=== PATIENT | female | born 1990 | race Caucasian/White ===

== ENCOUNTER 2024-02-26 15:22 | Outpatient (CLI) | payer OTHER, SELFPAY | END 2024-02-26 15:23 | disposition home or self-care (01) | LOC: FRMREF 15:25 | PROVIDERS: PCP Physician Assistant Medical; Visit Provider Physician Assistant Medical | DX: E06.3 Autoimmune thyroiditis (principal) | CPT/HCPCS: 84443 ==

== ENCOUNTER 2024-04-14 09:58 | Outpatient (CLI) | payer OTHER, SELFPAY | END 2024-04-14 09:59 | disposition home or self-care (01) | LOC: FRMREF 09:58 | PROVIDERS: PCP Physician Assistant Medical; Visit Provider Physician Assistant Medical | DX: R51.9 Headache, unspecified (principal); R53.83 Other fatigue | CPT/HCPCS: 80053; 82306; 82607; 82728 ==

== ENCOUNTER 2024-04-21 08:44 | Outpatient (RCR) | payer OTHER, SELFPAY ==
--- NOTE | 2024-04-18 14:39 | PC.NURSE ---
Diagnosis: Low Ferritin
[2024-04-21 08:56] VITALS: BP 97/64; PULSE 76; RESP 18; TEMP 36.3; O2SAT 97
[2024-04-21] MEDS: IRON DEXTRAN COMPLEX 25 MG in 0.9 % SODIUM CHLORIDE 100 ml 100 ML 402 MG IVPB (09:44)
[2024-04-21 10:07] VITALS: BP 90/58; PULSE 56; RESP 16; O2SAT 97
[2024-04-21 10:40] VITALS: BP 89/55; PULSE 63; RESP 14; TEMP 36.1; O2SAT 98
[2024-04-21] MEDS: IRON DEXTRAN COMPLEX 975 MG in 0.9 % SODIUM CHLORIDE 250 ml 250 ML 269.5 MG IVPB (11:00)
[2024-04-21 12:00] VITALS: BP 112/73; PULSE 60; RESP 14; TEMP 36.1; O2SAT 97
[2024-04-21 12:30] VITALS: BP 110/70; PULSE 62; RESP 14; TEMP 36.1; O2SAT 97
[2024-04-21] MEDS: SODIUM CHLORIDE 0.9 % (FLUSH) 10 ML SYRINGE IVF (13:32)
[2024-04-21] MEDS: 0.9 % SODIUM CHLORIDE 250 ml IV (13:32)
--- NOTE | 2024-04-21 13:35 | URNOTE ---
?Request received for authorization for Iron Dextran (Infed) ([id number]). Prior authorization is not required per [facility], Ref#[id number].
== END 2024-10-18 23:59 | disposition home or self-care (01) ==
LOC: CCIC 08:44
PROVIDERS: PCP Physician Assistant Medical; Referring Provider Physician Assistant Medical; Visit Provider Physician Assistant Medical
DX: R79.89 Other specified abnormal findings of blood chemistry (principal)
CPT/HCPCS: 96365; 96376; J1750; J7050

== ENCOUNTER 2024-07-14 12:30 | Outpatient (CLI) | payer OTHER, SELFPAY ==
--- NOTE | 2024-07-14 13:00 | CRLHL7_ITS ---
For Patients: As a result of the Century Cures Act, medical imaging exams and procedure reports are released immediately into your electronic medical record. You may view this report before your referring provider. If you have questions, please contact your health care provider. INDICATION: First trimester scan, establish dates. COMPARISON: None. TECHNIQUE: Real-time wilson-scale imaging of the pelvis was performed. FINDINGS: Sonographic imaging demonstrates a single living intrauterine gestation. The embryo demonstrates a regular cardiac rate measuring 165 beats per minute. The embryo`s crown-rump length measurement of 2.7 cm corresponds to a gestational age of 9 weeks 4 days with a sonographic due date of 02/12/2025. There is a normal-appearing yolk sac. There are no gross abnormalities noted within the embryo at this early state of development. The gestational sac has a normal appearance. There is no evidence of a perigestational hemorrhage. The amount of fluid within the sac appears appropriate for gestational age. The cervix is closed. The myometrium appears normal. The ovaries are of normal size. Corpus luteal cyst left ovary. There are no suspicious fluid collections noted in the cul-de-sac. IMPRESSION: Normal first trimester OB ultrasound exam. Gestational age calculated at 9 weeks 4 days with a sonographic due date of 02/12/2025. Dictated by Chace Whitaker MD @ 07/15/2024 1:30:01 PM (Electronically Signed)
== END 2024-07-14 12:31 | disposition home or self-care (01) ==
LOC: US 12:31
PROVIDERS: PCP Physician Assistant Medical; Visit Provider Advanced Practice Midwife
DX: Z34.91 Encounter for supervision of normal pregnancy, unspecified, first trimester (principal); Z3A.09 9 weeks gestation of pregnancy
CPT/HCPCS: 76801

== ENCOUNTER 2024-07-14 13:59 | Outpatient (CLI) | payer OTHER, SELFPAY | END 2024-07-14 14:00 | disposition home or self-care (01) | PROVIDERS: PCP Physician Assistant Medical; Visit Provider Advanced Practice Midwife | DX: Z34.91 Encounter for supervision of normal pregnancy, unspecified, first trimester (principal); Z3A.09 9 weeks gestation of pregnancy | CPT/HCPCS: 82728; 84443; 86592; 86703; 86704; 86706; 86762; 86787; 86803; 86850; 86900; 86901; 87086; 87340 ==

== ENCOUNTER 2024-07-16 13:27 | Outpatient (CLI) | payer OTHER, SELFPAY | END 2024-07-16 13:28 | disposition home or self-care (01) | LOC: NFLDREF 07-17 11:35 | PROVIDERS: PCP Physician Assistant Medical; Referring Provider Physician Assistant Medical; Visit Provider Advanced Practice Midwife | DX: R79.89 Other specified abnormal findings of blood chemistry (principal) | CPT/HCPCS: 80076; 83021; 83540; 83550 ==

== ENCOUNTER 2024-08-13 12:48 | Outpatient (CLI) | payer OTHER, SELFPAY | END 2024-08-13 12:49 | disposition home or self-care (01) | PROVIDERS: PCP Physician Assistant Medical; Visit Provider Advanced Practice Midwife | DX: Z34.82 Encounter for supervision of other normal pregnancy, second trimester (principal) | CPT/HCPCS: 84450; 84460 ==

== ENCOUNTER 2024-09-22 08:55 | Outpatient (CLI) | payer OTHER, SELFPAY ==
--- NOTE | 2024-09-22 09:15 | CRLHL7_ITS ---
For Patients: As a result of the Century Cures Act, medical imaging exams and procedure reports are released immediately into your electronic medical record. You may view this report before your referring provider. If you have questions, please contact your health care provider. INDICATION: Evaluate anatomy. COMPARISON: 07/14/2024 TECHNIQUE: Real time wilson scale imaging of the fetus was performed as well as color Doppler analysis of the umbilical vessels. FINDINGS: Sonographic imaging demonstrates a single living intrauterine gestation. Fetus demonstrates a regular cardiac rate of 142 beats per minute. Fetus has a variable position. The placenta lies posteriorly without evidence of placenta previa. Transvaginal images demonstrate the edge of the placenta 2.7 cm from the internal cervical os. Amniotic fluid volume appears normal. Single deepest vertical pocket: 5.7 cm. The cervix is closed and measures 5.3 cm in length. The composite ultrasound gestational age is calculated at 19 weeks 3 days with an estimated sonographic due date of 02/13/2025. The estimated weight is 294 grams which lies at the 39th %. The following biometric measurements were obtained: Biparietal diameter: 4.3 cm/19 weeks 0 days 28th% Head circumference: 16.4 cm/19 weeks 1 day 22nd% Abdominal circumference: 14.1 cm/19 weeks 3 days 41st% Femur length: 3.1 cm/19 weeks 4 days 44th% The HC/AC ratio measures: 1.16 range (1.08-1.26) On anatomic survey, there is a normal appearance of the cavum septi pellucidi, cisterna magna and cerebellum. Right choroid plexus cyst is present with heterogeneous internal echotexture measuring 7 x 8 x 7 millimeters. The nose and lips appear normal. The cervical, thoracic and lumbar spine are not well visualized. There is a normal four-chamber heart view and the left and right ventricular outflow tracts appear normal. The diaphragm and stomach appear normal. The kidneys and bladder also appear normal. There is a normal three-vessel cord and cord insertion site. The four extremities appear normal. IMPRESSION: Concordance of clinical and sonographic dating. Right choroid plexus cyst. Incomplete visualization of the profile and spine. Level 2 ultrasound should be considered. Dictated by Chace Whitaker MD @ 09/22/2024 2:41:35 PM (Electronically Signed)
== END 2024-09-22 08:56 | disposition home or self-care (01) ==
PROVIDERS: PCP Physician Assistant Medical; Visit Provider Advanced Practice Midwife
DX: Z34.92 Encounter for supervision of normal pregnancy, unspecified, second trimester (principal); O35.03X0 Maternal care for (suspected) central nervous system malformation or damage in fetus, choroid plexus cysts, not applicable or unspecified; Z3A.19 19 weeks gestation of pregnancy
CPT/HCPCS: 76805; 76817

== ENCOUNTER 2024-09-24 12:06 | Outpatient (CLI) | payer OTHER, SELFPAY | END 2024-09-24 12:07 | disposition home or self-care (01) | LOC: US 12:07 | PROVIDERS: PCP Physician Assistant Medical; Visit Provider Advanced Practice Midwife | DX: Z34.92 Encounter for supervision of normal pregnancy, unspecified, second trimester (principal); Z3A.20 20 weeks gestation of pregnancy | CPT/HCPCS: 76811 ==

== ENCOUNTER 2024-11-26 09:00 | Outpatient (CLI) | payer OTHER, SELFPAY | END 2024-11-26 09:01 | disposition home or self-care (01) | LOC: NFLDREF 12-03 00:58 | PROVIDERS: PCP Physician Assistant Medical; Referring Provider Physician Assistant Medical; Visit Provider Obstetrics & Gynecology | DX: Z34.93 Encounter for supervision of normal pregnancy, unspecified, third trimester (principal); R79.89 Other specified abnormal findings of blood chemistry; E06.3 Autoimmune thyroiditis; Z3A.29 29 weeks gestation of pregnancy | CPT/HCPCS: 82728; 84443; 84450; 84460; 86592 ==

== ENCOUNTER 2024-12-03 08:24 | Outpatient (CLI) | payer OTHER, SELFPAY | END 2024-12-03 08:25 | disposition home or self-care (01) | LOC: NFLDREF 12-06 02:31 | PROVIDERS: PCP Physician Assistant Medical; Referring Provider Physician Assistant Medical; Visit Provider Obstetrics & Gynecology | DX: Z34.83 Encounter for supervision of other normal pregnancy, third trimester (principal) | CPT/HCPCS: 82951; 82952 ==

== ENCOUNTER 2024-12-31 12:45 | Outpatient (CLI) | payer OTHER, SELFPAY | END 2024-12-31 12:46 | disposition home or self-care (01) | LOC: FRMREF 12:46 | PROVIDERS: PCP Physician Assistant Medical; Visit Provider Advanced Practice Midwife | DX: E06.3 Autoimmune thyroiditis (principal) | CPT/HCPCS: 84443 ==

== ENCOUNTER 2025-01-02 10:34 | Inpatient (IN) | payer OTHER, SELFPAY ==
[2025-01-02] VITALS (48 sets, daily range): BP systolic 92–129; BP diastolic 50–76; PULSE 52–114; RESP 16; TEMP 36.6–36.9; O2SAT 90–100; BMI 34.5
[2025-01-02] MEDS: LACTATED RINGERS 1000 ML 1,000 ML IV ×2 (09:00→12:21)
--- NOTE | 2025-01-02 09:05 | PM.OBLDTN ---
OB - Triage/Final Diagnosis Visit Information Time Seen by Provider: 09:05 Date Seen: 01/02/25 Date of evaluation: 01/02/25 Narrative: The patient is a 34 year old 5 para 2 at 34w 3d weeks gestation by LMP, who presents with contractions which began []. Patient reports she has tested positive with influenza A yesterday. Flu symptoms began on Sunday with nasal congestion, progressing to fever and body aches yesterday. She began Tamiflu regimen 2 days ago. She reports sensation of fluid leaking, unsure if it is urine or gel from cervical exam. Speculum exam performed with AmniSure, GBS, vaginitis panel, and ferning swab collected. FHR baseline 145 with recurrent variables. Contractions every 1-3 min. Reason for evaluation: other (Contrations, rule out ROM. )
--- NOTE | 2025-01-02 09:30 | P.OBCN_ITS ---
OB - CN: HPI Date of Consult Date Seen: 01/02/25 Patient: [facility] Patient Consult date: 01/02/25 Requesting Physician: Charity Suresh CNM Primary Care Provider: Thomas Weaver PA-C Consult Narrative Reason for consult: gestational hypertension Narrative: The patient is a 34 year old G 5 P 2 at 34 weeks gestation that presented to the Center this morning with concern for labor. is complicated by AMA, Ariel disease, anxiety. She had a normal level 2 ultrasound, no evidence of previa. Patient notes onset of flu like symptoms yesterday including sore throat, headache, nasal congestion, vomiting and diarrhea. She noted onset of cramping last night. This morning she was having regular contractions and pelvic pressure every few minutes, prompting presentation to care. Denies any vaginal bleeding or leaking of fluid. I was consulted for a stat consult by Charity Suresh CNM. NST was nonreactive on presentation, with baseline of 150 beats per minute, minimal variability and recurrent variable decelerations. RN exam was noted to be 3/70/-2. Charity presented to the bedside, where she started to speculum exam and noted return of kalyn red blood that filled the speculum. At the same time, of deceleration was heard initially to a anthony of 90, recovered briefly to 120, then decelerated again to 80 beats per minute and lasted about 1 minute. This was the time stat Ob consult request. On arrival to the bedside, heart rate had recovered to 150 beats per minute with persistent minimal variability. Brief SBAR was provided by Charity Suresh, at the bedside as well. Patient verbally affirmed that her has been uncomplicated. She noted regular contractions every 1-3 minutes. No pain in between her contractions, uterine tone palpates is soft in between contractions. Patient again denied any vaginal bleeding or leaking of fluid prior to presentation. Noted some decreased movement this morning. History History 2 5 Elective abortions 1 Para 2 Spontaneous abortions 1 Hx # Term Pregnancies 2 Ectopic pregnancies Hx # Pregnancies Multiple births Number of Living Children 2 Past Pregnancies Del. Date GA/Weeks Outcome Route wt Inf Gender Labor Lgth Anesthesia Location Provider Compli 08/13/14 39 live - full term 6 lb 5.7 oz Male [facility] [place] 05/17/23 38 live - full term 5 lb 15.6 oz Male epidural [facility]: [facility] Medical History (Updated 01/02/25 @ 10:37 by Vonda Caputo MD) Headache ?R51.9 - Headache, unspecified (ICD-10) Fatigue ?R53.83 - Other fatigue (ICD-10) Surgical History (Reviewed 05/22/24 @ 09:14 by Sujatha Ndiaye ~ GAS ENGINE REPAIRER, [facility]) History of D&C ?Z98.890 - Other specified postprocedural states (ICD-10) Family History (Updated 07/14/24 @ 13:53 by Charity Suresh CNM) Mother High blood pressure Maternal Grandfather High blood pressure Diabetes Heart disease Cancer Maternal Grandmother High blood pressure Diabetes Heart disease Sister High blood pressure Obesity Social History (Updated 07/15/24 @ 17:11 by Charity Suresh CNM) Narrative: SOCIAL Education: Associate Degree Work: Registered Nurse, [employer]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, Software Test Engineer Lives with: Jay and two boys Pets: Fish, axlto Abuse: Denies past/present Special Diet: Denies Ok with a blood transfusion: yes Culture or presybeterian beliefs: denies RISK FACTORS Exercise Times/wk: Not routinely Hx of Depression and/or Anxiety/other mood disorder: No history, Insomnia Seat Belt Use: Routinely Smoking: Denies present; Smoker more than 2 years ago Alcohol/day: Denies while ; Socially prior Caffeine: Yes, 1 latte per day Drug Use: Denies past/present Chicken Pox: Yes as a child MRSA: Denies What is your current living situation?: I presently have a place to live Problems where you live: no known problems In the past 12 months, utilities in danger of being shut off: no In past 12 months, lack of transportation kept you from medical appts, meetings, work, or getting things needed for daily living: no In the past 12 mos, have been you worried that your food would run out before you had money to buy more?: never true In the past 12 mos, the food you bought just didn't last and you didn't have money to buy more?: never true Smoking Status: Former smoker What tobacco products do you use: cigarettes Smoking quit date/years: <= 15 years ago Do you use any of these nicotine containing products: None Second hand tobacco smoke exposure: No How often does anyone, including family, friends and others, physically hurt you : never How often does anyone, including family, friends and others, insult or talk down to you: never How often does anyone, including family, friends and others, threaten you with harm: never How often does anyone, including family, friends and others, scream or curse at you: never Meds Home Medications and Allergies Home Medications ?Medication ?Instructions ?Recorded ?Confirmed ?Type trazodone 150 mg tablet 75 mg PO QHS PRN insomnia 07/14/24 01/02/25 History Allergies Allergy/AdvReac Type Severity Reaction Status Date / Time No Known Drug Allergies Allergy Verified 01/02/25 08:32 OB - H&P: Exam Physical Exam: Narrative: General: Alert oriented, in no acute distress Psych: Appropriate mood and affect Abdomen: Resting Tone is soft. Contractions occur every 2-3 minutes, moderate. Pelvic: External genital exam within normal limits. Speculum inserted, dark red blood noted to fill the posterior fourchette. This was evacuated with a large Q-tip x2, where minimal ongoing bleeding was noted. Cervix: 4/80/-1 (from 3/70/-2 on RN exam 1 hour ago) NST: Category 2. Admission NST as noted above with baseline of 150bpm, minimal variability and recurrent variable decelerations. More recently, baseline is 140bpm with minimal to moderate variability, 10x10 accel present. Prolonged deceleration noted when mom was positioned on her back for repeat speculum exam, gradually improved back to normal baseline. OB - CN: A/P Assessment and Plan (1) labor: Status: Acute (2) Generalized anxiety disorder: Status: Acute (3) Anxiety during , antepartum: Status: Acute (4) Vaginal bleeding during : Status: Acute (5) Cough: Status: Acute Plan Olga is a 34-year-old at 34w3d GA presented with contractions and pelvic pressure in the setting of a viral infection. Her infectious symptoms started 2 days ago, but worsened yesterday - including nasal congestion, sore throat, nausea/vomiting and diarrhea. She was treated for influenza with Tamiflu. Patient noted onset of cramping yesterday evening, this became increasingly regular and painful this morning. On admission, category 2 heart rate tracing was noted with normal variability and recurrent variable decelerations. Stat OB consult was requested, when kalyn bleeding was noted on a speculum exam by Charity Suresh CNM. A bolus of 1 L LR was infused. A 2nd IV was placed. Stat type and screen, CBC and coags were obtained and found to be normal - Hgb 11.6, INR 0.91, aPTT 31 and fibrinogen of 570. Preparations for delivery were initiated, including betamethasone #1 and ampicillin for GBS unknown and prematurity. Continuous monitoring was performed, during which time the condition did improve with moderate variability and 10 x 10 acceleration noted. However, this was followed by a prolonged deceleration when she laid on her back again for repeat speculum exam. On that exam, there was again note of small volume blood in the posterior fourchette with minimal appreciable ongoing bleeding. Cervix was noted to change to 4/80/-1. Explained that I am concerned for spontaneous onset of labor with suspected partial placental abruption. I explained that delivery is indicated, where options include expedition of delivery with AROM versus proceeding to primary . status is category 1 at this time, with a baseline of 130 beats per minute, moderate variability, no accelerations but also no decelerations. If we were to proceed with augmentation, I would advocate for consideration of a regional placement desired for analgesic purposes and to hopefully avoid a under general if emergency is required. Patient expressed understanding, she actually does desire regional for analgesia at this time. She understands that we will continuously monitor heart rate status. In the setting of persistent category 2 heart rate tracing or certainly a category 3, she understands that a emergency may be required. Explained risks of this procedure including bleeding, infection, damage to surrounding structures. She has previously requested bilateral salpingectomy for contraception, where she was scheduled to have her MD consult today. Patient verbally affirms she absolutely wants to be surgically sterilized, she is certain in her decision. She understands this is a irreversible where risks include regret, bleeding, infection and damage to surrounding structures. If she has a C/S, we will proceed with salpingectomy as above. If she has a , we will hold to assess maternal status following delivery to determine safety for tubal ligation. In addition, this may delay her discharge to be with . Regardless, we will readdress this after delivery if she has a vaginal. - Admit to Labor and delivery, transfer of care to Ob service - Continuous monitoring - Planned epidural placement, with AROM to follow to hopefully expedite in the setting of spontaneous onset of labor with suspected placental abruption - Patient understands we will have a low threshold to proceed with C/S if medically indicated per status. Verbal consent has been obtained. Desires salpingectomy for permanent sterilization, private insurance. - Blood type AB-positive, type and screen on file where we have requested a crossmatch for 2 units. - GBS unknown, penicillin ongoing. - Pediatrics to attend delivery in the setting of prematurity, category 2 FHR tracing and suspected abruption. Patient understands transfer will be required, desires Matt adamson.
--- NOTE | 2025-01-02 09:33 | P.LDBA_ITS ---
Subjective History of Present Illness Narrative: Patient is being admitted to Labor and Delivery for []. She is a 34 year old at weeks gestation. Her full history and physical was dictated by [] on []. Please see this for details. [] Specific Issues/Plans : Jay Nurse in [facility] H&P:? []? #. Choroid plexus cyst and incomplete views of spine and profile. Level 2 US:normal, no risk. #. Advanced maternal age Genetic screening: [id number] ordered- negative #. Ariel On medication for short period TSH at NOB:0.43 TSH each trimester, ordered with 28wk labs: 0.358 #. Oligohydramnios in first Not noted on delivery note but no records included # Elevated Ferritin with NOB labs 245 AST- 47, ALT 72, redrawn 08/13/24- AST 28, ALT-40 Plan recheck with 28 week labs of Ferritin, ALT and AST-ordered: all normal. Iron studies normal, Hbg 11.1 Hgb electrophoresis normal #. Anxiety Has used Citalopram in the past-ordered at 24 weeks. Increased to 20 mg at 32 weeks; BEATRIZ 0, PHQ 0 but feels her short fuse responses are much less COVID: initial series, declined booster Flu: TDAP: 12/18/2024 RSV: 32wk Mental Health: 34wk Hgb:
[2025-01-02] MEDS: BETAMETHASONE SOD PHOS/ACETATE 6 MG/ML ML 12 MG IM (09:36)
[2025-01-02 09:38] LABS: Hemoglobin* 11.6 gm/dL (12.0-16.0); Mean Corpuscular HGB Conc 33 gm/dL (32-36); Mean Corpuscular Hemoglobin 29 pg (26-34); Mean Corpuscular Volume 88 fL (80-100); Platelet Count* 221 K/uL (140-440); Red Blood Count 3.96 m/uL (4.00-5.20); White Blood Count* 6.38 K/uL (4.50-11.00)
[2025-01-02 09:40] LABS: Slide Review Reflex No
[2025-01-02] MEDS: AMPICILLIN 2 GM in 0.9 % SODIUM CHLORIDE Mini-bag 100 ML IVPB (09:46)
[2025-01-02 09:50] LABS: INR 0.91 (0.91-1.10)
[2025-01-02 09:51] LABS: Partial Thromboplastin Time* 31 Seconds (23-33)
[2025-01-02 09:57] LABS: Fibrinogen* 570 mg/dL (200-450)
[2025-01-02] MEDS: LACTATED RINGERS 1000 ML 1,000 ML 125 ML IV (10:56)
[2025-01-02] MEDS: PHENYLEPHRINE 100 MCG/ML SYRINGE IVP ×3 (11:13→11:50)
--- NOTE | 2025-01-02 11:38 | P.ANBPRC_ITS ---
PFSH PFS Medical History (Updated 01/02/25 @ 10:37 by Vonda Caputo MD) Headache ?R51.9 - Headache, unspecified (ICD-10) Fatigue ?R53.83 - Other fatigue (ICD-10) Surgical History (Reviewed 05/22/24 @ 09:14 by Sujatha Ndiaye ~ [facility], [facility]) History of D&C ?Z98.890 - Other specified postprocedural states (ICD-10) Family History (Updated 07/14/24 @ 13:53 by Charity Suresh CNM) Mother High blood pressure Maternal Grandfather High blood pressure Diabetes Heart disease Cancer Maternal Grandmother High blood pressure Diabetes Heart disease Sister High blood pressure Obesity Social History (Updated 07/15/24 @ 17:11 by Charity Suresh CNM) Narrative: SOCIAL Education: Associate Degree Work: Registered Nurse, [employer]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, Public Relations Sales Marketing Lives with: Jay and two boys Pets: Fish, axlto Abuse: Denies past/present Special Diet: Denies Ok with a blood transfusion: yes Culture or presybeterian beliefs: denies RISK FACTORS Exercise Times/wk: Not routinely Hx of Depression and/or Anxiety/other mood disorder: No history, Insomnia Seat Belt Use: Routinely Smoking: Denies present; Smoker more than 2 years ago Alcohol/day: Denies while ; Socially prior Caffeine: Yes, 1 latte per day Drug Use: Denies past/present Chicken Pox: Yes as a child MRSA: Denies What is your current living situation?: I presently have a place to live Problems where you live: no known problems In the past 12 months, utilities in danger of being shut off: no In past 12 months, lack of transportation kept you from medical appts, meetings, work, or getting things needed for daily living: no In the past 12 mos, have been you worried that your food would run out before you had money to buy more?: never true In the past 12 mos, the food you bought just didn't last and you didn't have money to buy more?: never true Smoking Status: Former smoker What tobacco products do you use: cigarettes Smoking quit date/years: <= 15 years ago Do you use any of these nicotine containing products: None Second hand tobacco smoke exposure: No How often does anyone, including family, friends and others, physically hurt you : never How often does anyone, including family, friends and others, insult or talk down to you: never How often does anyone, including family, friends and others, threaten you with harm: never How often does anyone, including family, friends and others, scream or curse at you: never Meds Home Medications and Allergies Home Medications ?Medication ?Instructions ?Recorded ?Confirmed ?Type trazodone 150 mg tablet 75 mg PO QHS PRN insomnia 07/14/24 01/02/25 History Allergies Allergy/AdvReac Type Severity Reaction Status Date / Time No Known Drug Allergies Allergy Verified 01/02/25 08:32 Results Labs Labs: Laboratory Results - last 24 hr 01/02/25 09:28 WBC 6.38 RBC 3.96 L Hgb 11.6 L Hct 35.0 MCV 88 MCH 29 MCHC 33 Plt Count 221 INR 0.91 APTT 31 Fibrinogen 570 H Blood Type AB Positive Antibody Screen NEGATIVE Crossmatch (AHG) See Detail Vital Signs Vital Signs: Last Vital Signs Pulse 67 01/02/25 11:37 BP 104/52 L 01/02/25 11:37 Pulse Ox 98 01/02/25 11:34 Weight: 85.729 kg Height: 157.48 cm Anesthesia Procedures Epidural Insertion Patient Location: OB Start Time: 11:05 Stop Time: 11:38 Start Date: 01/02/25 Stop Date: 01/02/25 Reason for Block: procedure for pain Patient Position: sitting Performed By: William Mondragon Preanesthetic Checklist: IV checked, risks and benefits discussed, monitors and equipment checked, pre-op evaluation, timeout performed and anesthesia consent Prep: chlorhexidine gluconate Monitoring: blood pressure monitoring, continuous pulse oximetry and heart rate Approach: midline Vertebral Space: lumbar (1-5) Epidural Technique: NEHA saline Needle Type: Tuohy needle Injection Technique: continuous catheter Needle gauge: 17 Needle Length (cm): 10 cm Needle Insertion Depth (cm): 6 Catheter Gauge: 19 Catheter Type: multi-orifice Catheter at skin depth (cm): 12 Test Dose Result: negative and lidocaine 1.5% with epinephrine 1 to 200,000
[2025-01-02] MEDS: fentaNYL 100 MCG/2 ML inj 50 MCG EPIDURAL (11:48)
[2025-01-02] MEDS: ROPIVACAINE 0.2% 100 ml 100 ML 10 MG EPIDURAL (11:48)
[2025-01-02] MEDS: LIDOCAINE 2% (PF) 5 ML VIAL 2 ML EPIDURAL (11:48)
--- NOTE | 2025-01-02 12:10 | PM.OBPNL ---
Subjective Date Seen: 01/02/25 Narrative: Olga is a 34-year-old at 34w3d GA presented with contractions and pelvic pressure in the setting of a viral infection. She was admitted in the setting of spontaneous onset of labor with suspected partial placental abruption. otherwise complicated by advanced maternal age, anxiety, history of sheela's (on no meds). In to assess in the setting of category 2 heart rate tracing. Recommend proceeding to AROM and FSE placement. Small volume blood noted on patient pad. Cervix is 6/80/-1, AROM performed at 1155 with clear and blood-tinged fluid. FSE placed without difficulty. heart was noted to be in the 60s but improving. Maternal repositioning completed, started IV fluid bolus again. heart rate ultimately recovered to a baseline of 125 beats per minute with moderate variability after a 5 minute prolonged deceleration. Baby was noted to have recurrent variable decelerations to follow with rapid return to baseline. I explained that status is category 2 for recurrent variable decelerations after recovering from a prolonged decel. FSE is in place to provide continuous assessment. If is to be an option, explained rapid cervical change will be required. If another prolonged deceleration occurs, explained I would recommend proceeding to . She expressed understanding and a desire to continue efforts towards . Objective Vital Signs: Last Vital Signs Pulse 61 01/02/25 12:09 BP 123/62 01/02/25 12:09 Pulse Ox 98 01/02/25 11:44
--- NOTE | 2025-01-02 12:19 | PM.OBHPLI ---
OB - H&P: HPI Labor/Induction History of Present Illness Date Seen: 01/02/25 Chief Complaint: Labor symptoms with Flu Chief complaint: maternity Narrative: Olga is a 34 year old gravid 5 para 2 at 34.3 weeks gestation by LMP, who presents with cramping and contractions that she reports began this morning around 7 am. She had some mild cramping last night but tolerable. She reports her had the Flu a week ago. She was feeling a mild sore throat on Sunday and Sunday but thought it may be related to change in weather. She did swab at work and it was negative. On she woke up feeling unwell. She started having emesis with diarrhea. She retested and was positive for Flu. She tried to stay hydrated but felt she was able to manage at home but did have some cramping last night but felt it was tolerable and related to the diarrhea and vomiting. She did call the clinic and was given a prescription for Tamiflu. She has taken 2 doses. This morning she started to have cramping with occasional pressure and attempted to manage at home with shower around 7 am. She felt this made things more intense and elected to call the center and come in for evaluation. She presented breathing through contractions. She denies any leaking of fluid or bleeding on arrival but has felt moist since yesterday. Per RN report, she was very wet and requested a speculum exam to rule out ROM. Her is otherwise complicated by AMA, chorioid plexus cyst, Hashimotos, Oligohydramnios, Elevated Ferritin with NOB labs 245, Anxiety. Specific Issues/Plans : Jay Nurse in [facility] H&P:? []? #. Choroid plexus cyst and incomplete views of spine and profile. Level II recommended: completed 12/31, see below NIPT: Low risk #. Advanced maternal age Genetic screening: Low risk Level II: see below #. Ariel On medication for short period TSH at NOB:0.43 TSH each trimester, ordered with 28wk labs: 0.358 #. Oligohydramnios in first Not noted on delivery note but no records included # Elevated Ferritin with NOB labs 245 AST- 47, ALT 72, redrawn 08/13/24- AST 28, ALT-40 Plan recheck with 28 week labs of Ferritin, ALT and AST-ordered: all normal. Iron studies normal, Hbg 11.1 Hgb electrophoresis normal #. Anxiety Has used Citalopram in the past-ordered at 24 weeks. Increased to 20 mg at 32 weeks; BEATRIZ 0, PHQ 0 but feels her short fuse responses are much less Ultrasound: 09/22/2024: IMPRESSION:Concordance of clinical and sonographic dating. Right choroid plexus cyst. Incomplete visualization of the profile and spine. Level 2 ultrasound should be considered. 09/24/2024: 1. Ybarra intrauterine at 20w 1d gestational age. 2. None of the anomalies commonly detected by ultrasound were evident in the detailed anatomic survey described above. 3. Growth parameters and estimated weight were consistent with appropriate for gestational age pattern of growth. 4. The amniotic fluid volume appeared normal. Recommendation: We discussed the findings on today's ultrasound with the patient. We reviewed that a right choroid plexus cyst (ARRESTING GEAR OPERATOR) is noted on today's US. We discussed that ARRESTING GEAR OPERATOR are seen in 1-2% of all pregnancies in the second trimester. In the absence of other anatomic abnormalities or soft markers in conjuction with her low risk cfDNA screen, this is considered to be a normal finding. We discussed that ARRESTING GEAR OPERATOR are not considered a structural or functional brain abnormality and therefore has no impact on neurodevelopmental outcome and do not require any follow up prenatally or postnatally. Further ultrasound studies as clinically indicated. COVID: initial series, declined booster Flu: TDAP: 12/18/2024 RSV: 32wk Mental Health: 34wk Hgb: History of Present Dating criteria: based on LMP care: good care Ultrasounds: normal 1st trimester US and abnormal US findings (Choroid Plexus cyst) Labs Blood type: AB (+) positive Narrative: Lab Assessment Start: 01/02/25 10:18 Freq: ONCE Status: Complete Protocol: PC.OBGBS Activity Type Activity Date Activity User E-sign Co-sign Detail Recorded Client Recorded Date Recorded By Document 01/02/25 10:18 ABH No Response 01/02/25 10:44 ABH 01/02/25 10:18 Lab Assessment GBS Status unknown GBS Additional Criteria Less than 37 Weeks In Pre- Term Labor Or PPROM Is Patient Allergic to Penicillin? No Treatment Required OK Are Labs Available Yes Maternal Blood Type AB Maternal RH Factor Positive Evaluate Maternal Rubella Immune Status Immune Hepatitis B Surface Antigen Negative Maternal HIV Status Negative Maternal Syphillis (RPR) Status Negative Meds Home Medications and Allergies Home Medications ?Medication ?Instructions ?Recorded ?Confirmed ?Type trazodone 150 mg tablet 75 mg PO QHS PRN insomnia 07/14/24 01/02/25 History Allergies Allergy/AdvReac Type Severity Reaction Status Date / Time No Known Drug Allergies Allergy Verified 01/02/25 08:32 OB - H&P: Exam Physical Exam: Vital signs: Pulse BP Pulse Ox 60 118/62 98 01/02/25 12:13 01/02/25 12:13 01/02/25 11:44 Narrative: Vitals Reviewed Constitutional:? Alert and oriented x3 HEENT:? Normocephalic, atraumatic Neck:? Supple Lungs:? Clear to auscultation bilaterally Heart:? Regular rate and rhythm, no murmur, rub or gallop Abdomen:? Soft, nontender, and gravid. Vertex by Steven's, confirmed with cervical exam. Extremities:? No edema or erythema Cervix: 3 cm/70%/-2 station/vertex per RN NST: 145 bpm/minimal variability/no accelerations/variable and prolonged decelerations/contractions every 1-3 minutes : Normal external female anatomy. On speculum exam, vaginal vault with blood visible and pooling, difficult to see cervix. Removed and reinserted with kalyn red blood in the vaginal vault filling speculum, cervix appears open but visually difficult to exam. GBS swab collected. Speculum removed. Other swabs were not collected. OB - Results Labs Labs: Short CBC 01/02/25 Range/Units 09:28 WBC 6.38 (4.50-11.00) K/uL Hgb 11.6 L (12.0-16.0) gm/dL Hct 35.0 (33.0-51.0) % Plt Count 221 (140-440) K/uL OB - Problem Based A/P Additional Plan (1) labor: Status: Acute (2) Generalized anxiety disorder: Status: Acute (3) Anxiety during , antepartum: Status: Acute (4) Vaginal bleeding during : Status: Acute (5) Cough: Status: Acute (6) Influenza: Status: Acute (7) 34 weeks gestation of : Status: Acute Plan ASSESSMENT:? 34 yo at 34.3 weeks gestation? complicated by:? AMA, chorioid plexus cyst, Hashimotos, Oligohydramnios, Elevated Ferritin with NOB labs 245, Anxiety. Labor type: Spontaneous Labor labor? Category 2 FHR pattern.?? Labor complicated by: Flu, AMA, vaginal bleeding GBS negative? labor Vaginal bleeding Influenza ? PLAN:? 1. Immediate consult to MD for bleeding and FHR tracing. Dr. Caputo called to bedside. Care assumed by Dr. Caputo due to gestational age, FHR tracing, and vaginal bleeding. Initial exam with speculum by CNM, however swabs were not collected due to the amount of blood present. GBS swab was collected and sent. 2. Monitoring per policy, continuous? 3. IV fluid bolus initiated for tracing. 4. Labs ordered by Dr. Caputo, pending at this time. BMZ ordered to be given and PCN for GBS unknown status. 5. Peds notified for status, will be updated when plan is made by Dr. Caputo. 6. Admit to inpatient for monitoring. Care assumed by Dr. Caputo. Please see her note for further details. Delivery/Labor/Induction Plan Plan: expectant management
[2025-01-02] MEDS: fentaNYL 100 MCG/2 ML inj EPIDURAL (12:25)
[2025-01-02] MEDS: OXYTOCIN 10 UNIT/ML INJ 40 UNIT IV (12:32)
--- NOTE | 2025-01-02 12:36 | SUR.OPER ---
Code miguel was called, patient ended up delivering in the OR, code white cancelled. iMguel Sheridan RN
--- NOTE | 2025-01-02 12:58 | PM.OBPNL ---
Subjective Date Seen: 01/02/25 Narrative: Olga is a 34-year-old at 34w3d GA presented with contractions and pelvic pressure in the setting of a viral infection. She was admitted in the setting of spontaneous onset of labor with suspected partial placental abruption. otherwise complicated by advanced maternal age, anxiety, history of Ariel's (on no meds). In to assess in the setting of category 2 heart rate tracing. Cervix was last 680/-1 with AROM and FSE placed. Tracing notable for baseline of 130 beats per minute, minimal to moderate variability, recurrent deep variable decelerations occurring, absent accelerations. Is variable decelerations are becoming increasingly deep, with most recent to a anthony of 50 beats per minute and lasting 1 minute in length. Rapid return to baseline is noted, but this baseline is noting to rise slightly. Cervical exam was performed again, 6/100/0. Explained cervical changes been demonstrated, however, I would recommend we proceed to primary in the setting of nonreassuring heart tones given recurrent variable decelerations, decreasing variability and a rise in the baseline. Patient expressed understanding verbal consent was obtained. Code miguel called. Plan to transfer to the operating room. Objective Vital Signs: Last Vital Signs Pulse 60 01/02/25 12:13 BP 118/62 01/02/25 12:13 Pulse Ox 98 01/02/25 11:44
--- NOTE | 2025-01-02 13:01 | PM.OBPNL ---
Subjective Date Seen: 01/02/25 Narrative: Olga is a 34-year-old at 34w3d GA presented with contractions and pelvic pressure in the setting of a viral infection. She was admitted in the setting of spontaneous onset of labor with suspected partial placental abruption. otherwise complicated by advanced maternal age, anxiety, history of Ariel's (on no meds). Labor has progressed with augmentation via amniotomy at 1155. Code miguel was called for nonreassuring heart tones, where cervical exam immediately prior was 6/100/0. On arrival to the operating room, heart rate was noted to have recovered to 145 beats per minute. Patient noted significant increase in her pelvic pain. Cervical exam was performed, 10/100/+3. Recommended immediate pushing efforts. Please see subsequent delivery note for complete details. Objective Vital Signs: Last Vital Signs Pulse 70 01/02/25 12:59 BP 111/54 L 01/02/25 12:59 Pulse Ox 99 01/02/25 12:59
--- NOTE | 2025-01-02 13:03 | W.PM.VAGDEL1 ---
Procedure Delivery date: 01/02/25 Procedure Done: Global Procedure Details: Procedures Operation Date: 01/02/25 12:45 <No data on this case meets the specified criteria> Events: Labor < 37 Weeks, AMA and Other (Suspected placental abruption) Intrapartal Events: Labor Augmentation Delivery augmentation: rupture of membranes Delivery monitor: internal FHT Route of delivery: Laceration description: None Estimated blood loss (mL): 150 Anesthesia type: Epidural Disposition: floor Complications: None Narrative: Olga is a 34-year-old at 34w3d GA who presented with spontaneous onset of labor with suspected placental abruption. was otherwise complicated by active influenza a, AMA, history of Ariel's (no thyroid meds), anxiety. Patient presented with regular painful contractions, was demonstrated to make cervical change without augmentation. She had a category 2 heart rate tracing on admission with vaginal bleeding, prompting concern for possible placental abruption. Her labor was augmented with amniotomy and epidural was utilized for pain management. Status of bag of clarke: AROM with return of blood tinged fluid. heart tones during active labor were Category 2. Code Rafael was called in the setting of non-reassuring heart tones, due to recurrent deep variable decelerations with rapid recovery to a baseline of 150bpm with minimal variability. Last cervical exam was immediately prior to calling Code White, at 6/100/0. On arrival to the OR, patient noted significantly increased pain where repeat cervical exam confirmed she was 10/100/+3. She was complete at 1228 and started pushing at 1228. She made excellent descent throughout the second stage of labor, and had a normal spontaneous vaginal delivery at 1231. heart tones during second stage of labor were category 2 for recurrent variable decelerations. Baby delivered OA, restituted JAY and the anterior and posterior shoulders delivered without difficulty. Nuchal cord: x2, delivered through and reduced immediately after delivery. The cord was clamped and cut after immediate cord clamping to allow for resuscitation. Baby was handed off to attending SHAKE SPLITTER, Corazon Esteban. Active management of the third stage occurred with IV pitocin and gentle cord traction and the placenta delivered spontaneous and intact at 1239. Placenta inspection notable for some adherent clot over about 25% of the surface, intact with 3 vessel cord. She had excellent uterine tone throughout, minimal bleeding with delivery with EBL of 150mL. Cord gases sent: yes Cord blood sent for infant ABO: no details: - Liveborn female fetus at 1228 - weight 4lb 14 oz - APGARs were 8 and 8 at 1 and 5 minutes respectively Perineum and vagina were inspected, and the following lacerations were noted: none. No repair was required. Excellent hemostasis was noted. The following counts were correct: sponges, needles, instruments. Mother and in stable condition following the .
[2025-01-02] MEDS: hydrOXYzine pamoate 25 MG CAPSULE 50 MG PO (20:00)
[2025-01-03 06:35] LABS: Hemoglobin* 11.2 gm/dL (12.0-16.0)
[2025-01-03 08:09] VITALS: BP 113/73; PULSE 51; RESP 16; TEMP 36.5; O2SAT 93
--- NOTE | 2025-01-03 08:41 | PM.OBDSVD1 ---
DS: Providers Provider Date Seen: 01/03/25 Date of admission: 01/02/25 10:34 Primary care physician: Thomas Weaver PA-C Admitting Clinician: Vonda Caputo MD Consults: 01/02/25 09:29 Consult to Physician [CONS] Routine Comment: Consulting Provider: Vonda Caputo Has provider been notified: Yes Attending Physician on discharge: Cherie Parekh CNM Date of Discharge: 01/03/25 DS: Diagnosis Discharge Diagnosis (1) care and examination of lactating mother: Status: Acute (2) Influenza: Status: Acute Exam Narrative: Exam Narrative: VSS, afebrile GENERAL APPEARANCE: ?normal affect, alert, no distress MOOD: ?appropriate HEENT: normocephalic, neck supple, full ROM CHEST: ?Symmetrical chest wall movement. ?Normal respiratory effort. ?Clear to auscultation HEART: ?regular rate and rhythm ABDOMEN: ?soft, non-tender. Uterine fundus is firm, 1 below Umbilicus, Midline and is appropriate for the stage of recovery. ?Bowel sounds present. PERINEUM: ?mild edema of the perineum, intact. EXTREMITIES: ?normal and trace edema Const: Vital Signs, click to edit/add: Vital Signs - 24 hr 01/02/25 10:35 01/02/25 10:59 01/02/25 11:04 Temperature Pulse Rate 73 Pulse Rate [Pulse Oximeter] Respiratory Rate Blood Pressure 101/60 Blood Pressure [Le ft Arm] Pulse Oximetry 97 98 Oxygen Delivery Me thod 01/02/25 11:09 01/02/25 11:14 01/02/25 11:15 Temperature Pulse Rate 82 56 L Pulse Rate [Pulse Oximeter] Respiratory Rate Blood Pressure 102/64 117/57 L Blood Pressure [Le ft Arm] Pulse Oximetry 97 98 Oxygen Delivery Me thod 01/02/25 11:19 01/02/25 11:20 01/02/25 11:21 Temperature Pulse Rate 66 57 L Pulse Rate [Pulse Oximeter] Respiratory Rate Blood Pressure 119/76 120/58 L Blood Pressure [Le ft Arm] Pulse Oximetry 100 Oxygen Delivery Me thod 01/02/25 11:23 01/02/25 11:24 01/02/25 11:25 Temperature Pulse Rate 67 76 Pulse Rate [Pulse Oximeter] Respiratory Rate Blood Pressure 116/57 L 103/54 L Blood Pressure [Le ft Arm] Pulse Oximetry 100 Oxygen Delivery Me thod 01/02/25 11:27 01/02/25 11:29 01/02/25 11:30 Temperature Pulse Rate 114 H 70 Pulse Rate [Pulse Oximeter] Respiratory Rate Blood Pressure 115/58 L 114/56 L Blood Pressure [Le ft Arm] Pulse Oximetry 96 90 Oxygen Delivery Az thod 01/02/25 11:31 01/02/25 11:33 01/02/25 11:34 Temperature Pulse Rate 78 83 Pulse Rate [Pulse Oximeter] Respiratory Rate Blood Pressure 121/59 L 119/58 L Blood Pressure [Le ft Arm] Pulse Oximetry 98 Oxygen Delivery Az thod 01/02/25 11:35 01/02/25 11:37 01/02/25 11:39 Temperature Pulse Rate 72 67 Pulse Rate [Pulse Oximeter] Respiratory Rate Blood Pressure 105/58 L 104/52 L Blood Pressure [Le ft Arm] Pulse Oximetry 99 Oxygen Delivery Az thod 01/02/25 11:40 01/02/25 11:44 01/02/25 11:45 Temperature Pulse Rate 76 72 Pulse Rate [Pulse Oximeter] Respiratory Rate Blood Pressure 113/55 L 109/54 L Blood Pressure [Le ft Arm] Pulse Oximetry 98 Oxygen Delivery Az thod 01/02/25 11:47 01/02/25 11:49 01/02/25 11:52 Temperature Pulse Rate 74 68 52 L Pulse Rate [Pulse Oximeter] Respiratory Rate Blood Pressure 95/50 L 92/51 L 119/58 L Blood Pressure [Le ft Arm] Pulse Oximetry Oxygen Delivery Az thod 01/02/25 11:53 01/02/25 11:57 01/02/25 11:59 Temperature Pulse Rate 57 L 71 59 L Pulse Rate [Pulse Oximeter] Respiratory Rate Blood Pressure 114/58 L 120/59 L 121/60 Blood Pressure [Le ft Arm] Pulse Oximetry Oxygen Delivery Az thod 01/02/25 12:01 01/02/25 12:06 01/02/25 12:09 Temperature Pulse Rate 67 63 61 Pulse Rate [Pulse Oximeter] Respiratory Rate Blood Pressure 121/62 129/61 123/62 Blood Pressure [Le ft Arm] Pulse Oximetry Oxygen Delivery Az thod 01/02/25 12:11 01/02/25 12:13 01/02/25 12:39 Temperature Pulse Rate 66 60 Pulse Rate [Pulse Oximeter] Respiratory Rate 16 Blood Pressure 121/61 118/62 Blood Pressure [Le ft Arm] 116/50 L Pulse Oximetry Oxygen Delivery Me thod 01/02/25 12:50 01/02/25 12:58 01/02/25 12:59 Temperature Pulse Rate 70 Pulse Rate [Pulse Oximeter] 84 Respiratory Rate Blood Pressure 111/54 L Blood Pressure [Le ft Arm] 126/58 L Pulse Oximetry 90 99 Oxygen Delivery Az thod 01/02/25 13:04 01/02/25 13:14 01/02/25 13:29 Temperature Pulse Rate 62 57 L Pulse Rate [Pulse Oximeter] Respiratory Rate Blood Pressure 113/58 L 115/57 L Blood Pressure [Le ft Arm] Pulse Oximetry 98 Oxygen Delivery Az thod 01/02/25 13:44 01/02/25 13:59 01/02/25 14:14 Temperature Pulse Rate 60 57 L 63 Pulse Rate [Pulse Oximeter] Respiratory Rate Blood Pressure 120/61 111/56 L 102/54 L Blood Pressure [Le ft Arm] Pulse Oximetry Oxygen Delivery Az thod 01/02/25 14:33 01/02/25 14:44 01/02/25 14:44 Temperature 97.9 F Pulse Rate 60 65 Pulse Rate [Pulse Oximeter] Respiratory Rate Blood Pressure 104/53 L 105/56 L Blood Pressure [Le ft Arm] [facility]xim[facility] 01[facility] 19:59 01/03/25 08:09 Temperature 98.4 F 97.7 F Pulse Rate Pulse Rate [Pulse Oximeter] 70 51 L Respiratory Rate 16 16 Blood Pressure Blood Pressure [Le ft Arm] 100/64 113/73 Pulse Oximetry 96 93 Oxygen Delivery Me thod Room Air Room Air Documenting provider has reviewed patient's vital signs: yes OB - DS: Summary Hospital Course Hospital Course: Olga is a 34 y.o. who was admitted to [facility] & [facility] for labor. ?She had an NVD complicated by vaginal bleeding.?The patient feels well. ?The pain is well controlled with current medications. ?She has no new complaints. ?She is pumping for her baby who is in the NICU and reports things are going well.? the patient has done well.? Vitals have been stable.? She has remained afebrile.? Has a good appetite, is tolerating a general diet. ?She is voiding without difficulty.? She is passing gas and has not had a bowel movement.? She is ambulating and denies any dizziness.? Has Small amount of rubra lochia. ?She is planning IUD for prevention. She declines prescriptions for ibuprofen or Colace stating she has this at home. Peripartum Data delivery method: Vaginal Laceration description: None Procedures: Procedures Operation Date: 01/02/25 12:45 <No data on this case meets the specified criteria> complications: none [place] Infant Gender: Female Discharge Plan: Currently in NICU Status at Discharge Functional status at discharge: independent ambulation Overall status at discharge: patient is progressing back to baseline Time Spent with Patient Time attestation: Total time spent providing and/or coordinating discharge services: Time spent: Less than 30 minutes Discharge Plan Discharge Disposition: Home, Self-Care Date of Admission: 01/02/25 10:34 Attending Provider on Discharge: Cherie Parekh Consulting Providers: Vonda Caputo Primary Care Provider: Thomas Weaver Condition: Stable Anticipated Discharge Date/Time: 01/03/25 12:00 Discharge Medications: New acetaminophen 500 mg Tablet 1,000 mg PO Q6H PRNQty: 0 0RF docusate sodium 100 mg Capsule 100 mg PO DAILY Qty: 0 0RF ibuprofen 600 mg Tablet 600 mg PO Q6H PRNQty: 0 0RF Continued citalopram 20 mg tablet 20 mg PO QDAY Qty: 60 0RF trazodone 150 mg tablet 75 mg PO QHS PRN (Reason: insomnia) oseltamivir [Tamiflu] 75 mg capsule 75 mg PO BID 5 Days Qty: 10 0RF Discharge Orders: Discharge Order (Routine); Ordered 01/03/25 Ordered By: Cherie Parekh Patient Education: OB Over the Counter Medication Information, OB Vaginal/Breast Feeding Additional Instructions: Discharge instructions were reviewed with the patient including signs and symptoms of infection and home going medications Nothing vaginally for 6 weeks: no tampons or intercourse Off Work or School for 6 weeks 2-week visit: discuss infant feeding concerns, review control options and screen for anxiety/depression. 6-week visit for an annual exam. consultation services are available to all mothers and babies for the first year after delivery.? To make an appointment, please call [phone]. Activity Level: Activity as Tolerated Discharge Diet: Regular Follow Up Appointments: [facility] [Provider Group] Forms: iPrintth Info Instructions
[2025-01-03 09:18] LABS: Strep B DNA Probe Negative (Negative)
[2025-01-03 09:27] LABS: Strep B Susceptibility Needed? No
--- NOTE | 2025-01-03 11:18 | PM.ANPOST ---
Post Anesthesia Note Post Anesthesia Note Patient seen: Inpatient Respiratory Status: adequate Cardiovascular Status: adequate Mental Status: baseline Pain: adequate Temp: baseline Anesthetic awareness: N/A Complications: none Follow care: none
[2025-01-03 16:13] LABS: Rapid Plasma Reagin (RPR) Non Reactive (Non Reactive)
== END 2025-01-03 11:40 | disposition home or self-care (01) | DRG 805 ==
LOC: OB OUT 10:57 → OB 12:36
PROVIDERS: Admitting Provider Obstetrics & Gynecology; PCP Physician Assistant Medical; Visit Provider Advanced Practice Midwife
DX: O60.14X0 Preterm labor third trimester with preterm delivery third trimester, not applicable or unspecified (principal); O45.8X3 Other premature separation of placenta, third trimester; Z37.0 Single live birth; J11.1 Influenza due to unidentified influenza virus with other respiratory manifestations; J11.2 Influenza due to unidentified influenza virus with gastrointestinal manifestations; O76 Abnormality in fetal heart rate and rhythm complicating labor and delivery; O13.4 Gestational [pregnancy-induced] hypertension without significant proteinuria, complicating childbirth; O99.344 Other mental disorders complicating childbirth; F41.1 Generalized anxiety disorder; O99.284 Endocrine, nutritional and metabolic diseases complicating childbirth; E06.3 Autoimmune thyroiditis; Z3A.34 34 weeks gestation of pregnancy
CPT/HCPCS: 01967; 36415; 85018; 85025; 85027; 85384; 85610; 85730; 86592; 86850; 86900; 86901; 86922; 87081; 87653; 88307; G0463; A9270; J0290; J0456; J0702; J2371; J2590; J2795; J3010; J7120

== ENCOUNTER 2025-02-25 14:48 | Outpatient (CLI) | payer OTHER, SELFPAY ==
[2025-02-27 16:54] LABS: HPV Source Cervical; HPV, High Risk by TMA Not Detected
== END 2025-02-25 14:49 | disposition home or self-care (01) ==
PROVIDERS: PCP Physician Assistant Medical; Visit Provider Advanced Practice Midwife
DX: Z12.4 Encounter for screening for malignant neoplasm of cervix (principal); Z11.51 Encounter for screening for human papillomavirus (HPV)
CPT/HCPCS: 87624; 87625; 88141; 88142

== ENCOUNTER 2025-03-02 11:30 | Outpatient (CLI) | payer OTHER, SELFPAY | END 2025-03-02 11:31 | disposition home or self-care (01) | LOC: NFLDREF 03-10 23:13 | PROVIDERS: PCP Physician Assistant Medical; Referring Provider Physician Assistant Medical; Visit Provider Advanced Practice Midwife | DX: E06.3 Autoimmune thyroiditis (principal) | CPT/HCPCS: 84443 ==